=== PATIENT | male | born 1960 | race Caucasian/White ===

== ENCOUNTER 2022-01-30 08:38 | Emergency (ER) | payer BC, OTHER ==
[2022-01-30 08:57] VITALS: BP 149/107; PULSE 113; TEMP 97.6; BMI 26.5
[2022-01-30] MEDS ORDERED: SODIUM CHLORIDE 0.9% 500 ML INFUS.BAG IV ONE (10:08)
[2022-01-30 10:48] LABS: INR 1.07 (0.83-1.09); PROTHROMBIN TIME (PATIENT) 12.3 SEC (9.7-13.0)
[2022-01-30 10:50] LABS: ACTIVATED PTT 23.2 SECONDS (25.2-36.5)
[2022-01-30 10:54] LABS: CHLORIDE 100 mmol/L (98-107); SODIUM 134 mmol/L (136-145)
[2022-01-30 10:56] LABS: ALBUMIN 4.5 g/dl (3.4-5.0); ANION GAP 8 MMOL/L (8-16); CALCIUM 10.9 mg/dL (8.5-10.1); CO2 26 mmol/L (21-32); GLUCOSE,RANDOM 186 mg/dL (74-106); MAGNESIUM 1.5 mg/dL (1.8-2.4)
[2022-01-30 10:57] LABS: BLOOD UREA NITROGEN 33.2 mg/dL (7-18)
[2022-01-30 10:59] LABS: SGPT/ALT 79 U/L (13-61)
[2022-01-30 11:00] LABS: CREATININE 1.2 mg/dL (0.55-1.3); SGOT/AST 100 U/L (15-37)
[2022-01-30 11:01] LABS: TOT PROT 8.6 g/dl (6.4-8.2)
[2022-01-30 11:03] LABS: ALK PHOS 57 U/L (45-117)
[2022-01-30 11:04] LABS: N-TERMINAL BNP 62.5 pg/ml (5-125)
[2022-01-30 12:42] LABS: BASO % 0.8 % (0-2.0); HEMATOCRIT 42.9 % (35.4-49); HEMOGLOBIN 15.4 GM/dL (11.7-16.9); LYMPH % 22.3 % (8-40); MEAN CELL VOLUME 86.1 fl (80-96); MEAN PLT VOLUME 8.2 fl (7.5-11.1); MONO % 11.1 % (3.8-10.2); NEUT % 64.8 % (42.8-82.8); PLATELET COUNT 386 10^3/uL (134-434); RBC 4.98 M/mm3 (4.00-5.60); RDW 12.5 % (11.9-15.9); WHITE BLOOD COUNT 8.1 K/mm3 (4.0-10.0)
[2022-01-30 14:14] LABS: CALCIUM 9.9 mg/dL (8.5-10.1)
[2022-01-30 14:15] LABS: BLOOD UREA NITROGEN 31.1 mg/dL (7-18)
[2022-01-30 14:18] LABS: CREATININE 1.1 mg/dL (0.55-1.3)
[2022-01-30 14:19] LABS: BILIRUBIN,TOTAL 0.6 mg/dL (0.2-1); TOT PROT 7.3 g/dl (6.4-8.2)
== END 2022-01-30 15:15 | disposition home or self-care (01) ==
LOC: JER 08:38
DX: R53.1 Weakness (principal); R11.0 Nausea
CPT/HCPCS: 36415; 71045-TC-FY; 80053; 82550; 82553; 82962; 83735; 83880; 84484; 85025; 85610; 85730; 93005; 93010; 99285-25